=== PATIENT | male | born 1980 | race American Indian/Alaskan Native ===

== ENCOUNTER 2019-11-21 03:39 | Emergency (ER) | payer SELFPAY ==
--- NOTE | 2019-11-21 04:01 | Emergency Department Report ---
<CARLOS BUTT - Last Filed: 11/21/19 11:05> History of Present Illness - General Chief Complaint: Overdose Stated Complaint: STOPPED BREATHING Time Seen by Provider: 11/21/19 03:53 - Related Data Previous Rx's Medication Instructions Recorded Last Taken Type cephALEXin [Keflex] 500 mg PO Q12HR #10 cap 11/21/19 Unknown Rx Allergies Allergy/AdvReac Type Severity Reaction Status Date / Time No Known Allergies Allergy Unverified 11/21/19 04:09 ED Past Medical Hx - Medications Home Medications: Home Medications Medication Instructions Recorded Confirmed Last Taken Type cephALEXin [Keflex] 500 mg PO Q12HR #10 cap 11/21/19 Unknown Rx ED Medical Decision Making - Lab Data Result diagrams: 11/21/19 Unknown 11/21/19 Unknown - Medical Decision Making Patient's Narcan drip was discontinued at 8 AM and patient has remained alert without recurrent respiratory or mental status depression. UA reveals a increased RBC count. Patient will be empirically treated for gonorrhea and chlamydia given the fact that he is abusing drugs to the point of being altered and therefore at risk for high risk sexual behavior. He will also be treated for UTI. Gonorrhea chlamydia test pending. UDS positive for cocaine. Patient will be discharged home and provided outpatient resources for substance abuse programs ED Disposition Clinical Impression: Accidental drug overdose, Drug abuse, Cocaine abuse, Urethritis Disposition: DC-01 TO HOME OR SELFCARE Is pt being admited?: No Condition: Stable Instructions: Nonspecific Urethritis in Men (ED), Cocaine Abuse (ED), Polysubstance Abuse (ED) Additional Instructions: Take the medication as prescribed. Follow-up with your doctor or doctor/clinic provided. Return if symptoms worsen as indicated by your discharge instructions. Your gonorrhea and Chlamydia tests have been sent and take 2-3 days to result. You have been treated for gonorrhea and chlamydia in the ER. You may obtain your results by going to medical records with your photo ID or your follow-up physician may request the results be sent to his or her office with your written permission. You will be treated for a urinary tract infection as well. If your tests are positive for gonorrhea or chlamydia your sexual partners will also be treated for STDs Prescriptions: cephALEXin [Keflex] 500 mg PO Q12HR #10 cap Referrals: PRIMARY CARE, [Primary Care Provider] - 3-5 Days CARBUCCIA,MAY, MD [Staff Physician] - 3-5 Days [facility] [Provider Group] - 3-5 Days Forms: STI Treatment and Prevention Time of Disposition: 11:08 <JAMES REYES - Last Filed: 11/24/19 07:52> History of Present Illness - General Source: patient, EMS Mode of arrival: Stretcher Limitations: No Limitations - History of Present Illness Initial Comments: Patient is 39 years old male with no significant past medical history. Patient brought to the emergency room via EMS from home for evaluation of altered mental status. EMS stated that initial call came as a cardiac arrest however when they went to the patient house patient is breathing with strong pulse. Patient given 2 mg of Narcan by EMS and patient immediately started to wake up. Upon arrival to the ER patient is awake, alert and oriented x3 in no acute distress. Patient informed that he was drinking last night and he also took some cocaine. Patient denied any suicidal ideation, homicidal ideation, visual or auditory hallucination. Patient started on Narcan drip. Complaint: accidental overdose -: Last night How Overdose Was Discovered: family/friend present Context: Accidental Overdose: wanted to get high Treatments Prior to Arrival: narcan ED Review of Systems ROS: Stated complaint: STOPPED BREATHING Other details as noted in HPI Comment: All other systems reviewed and negative Constitutional: denies: chills, fever Respiratory: denies: cough, shortness of breath, SOB with exertion, wheezing Cardiovascular: denies: chest pain, palpitations Gastrointestinal: denies: abdominal pain, nausea, vomiting Musculoskeletal: denies: back pain Neurological: denies: headache, weakness, numbness ED Past Medical Hx - Past Medical History Previous Medical History?: No - Surgical History Past Surgical History?: No - Social History Smoking Status: Current Every Day Smoker Substance Use Type: Alcohol, Cocaine ED Physical Exam - General Limitations: No Limitations General appearance: alert, in no apparent distress - Head Head exam: Present: atraumatic, normocephalic, normal inspection - Eye Eye exam: Present: normal appearance - ENT ENT exam: Present: normal exam, normal orophraynx, mucous membranes moist - Neck Neck exam: Present: normal inspection, full ROM. Absent: tenderness, meningismus - Respiratory Respiratory exam: Present: normal lung sounds bilaterally - Cardiovascular Cardiovascular Exam: Present: regular rate, normal rhythm, normal heart sounds - GI/Abdominal GI/Abdominal exam: Present: soft, normal bowel sounds. Absent: distended, tend erness, guarding, rebound, rigid, mass, bruit, pulsatile mass, hernia - Extremities Exam Extremities exam: Present: normal inspection, full ROM, normal capillary refill. Absent: tenderness, pedal edema, calf tenderness - Back Exam Back exam: Present: normal inspection, full ROM. Absent: CVA tenderness (R), CVA tenderness (L) - Neurological Exam Neurological exam: Present: alert, oriented X3, CN II-XII intact - Psychiatric Psychiatric exam: Present: normal mood. Absent: agitated, anxious, flat affect, manic, homicidal ideation, suicidal ideation - Skin Skin exam: Present: warm, intact, normal color ED Course Vital Signs 11/21/19 11/21/19 11/21/19 03:51 03:55 04:01 Temperature 98.4 F Pulse Rate 104 H 106 H Respiratory 18 18 14 Rate Blood Pressure 127/77 131/83 O2 Sat by Pulse 97 97 95 Oximetry 11/21/19 11/21/19 11/21/19 04:30 05:00 05:30 Temperature Pulse Rate 99 H Respiratory 15 19 16 Rate Blood Pressure 132/78 132/78 O2 Sat by Pulse 95 Oximetry 11/21/19 11/21/19 11/21/19 06:00 06:30 07:00 Temperature Pulse Rate Respiratory 16 12 11 L Rate Blood Pressure 132/78 132/78 118/65 O2 Sat by Pulse 98 97 87 Oximetry 11/21/19 11/21/19 11/21/19 07:30 08:00 09:00 Temperature Pulse Rate Respiratory 15 15 12 Rate Blood Pressure 118/65 123/71 114/62 O2 Sat by Pulse 97 98 91 Oximetry 11/21/19 11/21/19 11/21/19 10:00 10:30 11:00 Temperature Pulse Rate Respiratory 14 11 L 18 Rate Blood Pressure 103/40 103/40 O2 Sat by Pulse 96 94 97 Oximetry ED Medical Decision Making - Lab Data Result diagrams: 11/21/19 Unknown 11/21/19 Unknown - Medical Decision Making Patient is 39 years old male with no significant past medical history. Patient brought to the emergency room via EMS from home for evaluation of altered mental status. EMS stated that initial call came as a cardiac arrest however when they went to the patient house patient is breathing with strong pulse. Patient given 2 mg of Narcan by EMS and patient immediately started to wake up. Upon arrival to the ER patient is awake, alert and oriented x3 in no acute distress. Patient informed that he was drinking last night and he also took some cocaine. Patient denied any suicidal ideation, homicidal ideation, visual or auditory hallucination. Patient started on Narcan drip. Patient reevaluated by me multiple times. Patient remain alert, oriented in x3 in no acute distress. I offered the patient a consultation with mental health for drug rehab however patient immediately declined and he said he will do it by his own. Critical care attestation.: If time is entered above; I have spent that time in minutes in the direct care of this critically ill patient, excluding procedure time. ED Disposition Is pt being admited?: No
[2019-11-21 04:22] LABS: Basophils # (Auto) 0.1 K/mm3 (0.0-0.1); Eosinophils % (Auto) 0.2 % (0.0-4.3); Hematocrit 41.5 % (35.5-45.6); Lymphocytes # (Auto) 0.7 K/mm3 (1.2-5.4); Lymphocytes % (Auto) 8.1 % (13.4-35.0); Mean Corpuscular HGB Conc 34 % (32-34); Mean Corpuscular Volume 87 fl (84-94); Monocytes # (Auto) 0.5 K/mm3 (0.0-0.8); Monocytes % (Auto) 5.2 % (0.0-7.3); Platelet Count 255 K/mm3 (140-440); Red Blood Count 4.75 M/mm3 (3.65-5.03); Red Cell Distribution Width 14.3 % (13.2-15.2)
[2019-11-21] MEDS ORDERED: NALOXONE 2 MG/2 ML 2 MG in SODIUM CHLORIDE 0.9% 500 ML 500 ML IV ONE (04:30)
[2019-11-21 04:33] LABS: BUN/Creatinine Ratio 12; Blood Urea Nitrogen 14 mg/dL (9-20); Calcium 8.8 mg/dL (8.4-10.2); Hemolysis Index 4
[2019-11-21] MEDS ORDERED: MAGNESIUM SULFATE 2 GM/50 ML BAG IV ONE (06:01)
[2019-11-21] MEDS ORDERED: SODIUM CHLORIDE 0.9% 1000 ML 1,000 ML IV ONE (08:26)
[2019-11-21 10:05] VITALS: BP 103/40
[2019-11-21 10:46] LABS: Bilirubin,Urine NEG (Negative); Blood,Urine NEG (Negative); Color,Urine Yellow (Yellow); Mucus,Urine FEW /HPF; Urobilinogen,Urine < 2.0 mg/dL (<2.0)
[2019-11-21 10:55] LABS: Amphetamine Screen,Urine PRESUMPTIVE NEGATIVE; Benzodiazepines Screen,Urine PRESUMPTIVE NEGATIVE; Cannabinoid Screen,Urine PRESUMPTIVE NEGATIVE; Methadone Screen,Urine PRESUMPTIVE NEGATIVE
[2019-11-21] MEDS ORDERED: LIDOCAINE-MPF (1%) 10 MG/1 ML VIAL 5 ML INFILTRATI ONE (11:04)
[2019-11-21] MEDS ORDERED: AZITHROMYCIN 250 MG TAB PO ONE (11:04)
[2019-11-21 11:17] LABS: Cocaine Screen,Urine PRESUMPTIVE POSITIVE; Opiate Screen,Urine PRESUMPTIVE POSITIVE
== END 2019-11-21 11:26 | disposition home or self-care (01) ==
LOC: ED 03:39
DX: T50.7X1A Poisoning by analeptics and opioid receptor antagonists, accidental (unintentional), initial encounter (principal); N34.2 Other urethritis; F14.10 Cocaine abuse, uncomplicated; Y92.89 Other specified places as the place of occurrence of the external cause
CPT/HCPCS: 36415; 80048; 80307; 81001; 85025; 87086; 87591; 96365; 96366; 96372; 99284; J0696; J2310; J3475; J7030; J7040; 80320; G0480

== ENCOUNTER 2019-11-24 13:30 | Emergency (ER) | payer SELFPAY ==
[2019-11-24 14:32] VITALS: BP 153/98
--- NOTE | 2019-11-24 14:40 | Emergency Department Report ---
Chief Complaint: Nausea/Vomiting/Diarrhea Stated Complaint: DIZZY Time Seen by Provider: 11/24/19 14:34 - HPI History of Present Illness: 39 yo AA M pt presents with complaints of nausea x this morning. Pt states he was sent here by his job to be evaluated. He denies any abdominal pain, fever, vomiting, diarrhea, constipation, melena, hematochezia, chest pain, SOB, congestion, or headache. Pt states the nausea has resolved and he is currently feeling well. - Exam Vital Signs: Vital Signs 11/24/19 14:31 Temperature 98.9 F Pulse Rate 72 Respiratory 18 Rate Blood Pressure 153/98 [Right] O2 Sat by Pulse 100 Oximetry MSE screening note: Focused history and physical exam performed. Due to findings the following was ordered: ED Medical Decision Making - Medical Decision Making Pt here with complaints of nausea. He denies any further nausea or other symptoms. Pt's vitals are normal and he is well appearing. Pt instructed try OTC pepto bismol as needed for nausea. Pt also instructed to return to the ED if he develops any abdominal pain, vomiting, diarrhea, SOB, chest pain, hemoptysis, hematochezia/melena, or any other new/worsening/concerning symptoms. Pt to follow up out patient with his PCP. He is stable for d/c home ED Disposition for MSE Clinical Impression: Nausea Disposition: MED SCREENING EXAM-LEFT Is pt being admited?: No Condition: Stable Instructions: Acute Nausea and Vomiting (ED) Additional Instructions: Please try taking over the counter Peptobismol as needed for nausea. If you develop any new or worsening symptoms, return to the emergency department Referrals: PRIMARY CARE, [Referring] - 7-10 days ED Physical Exam - General Limitations: No Limitations General appearance: alert, in no apparent distress - Head Head exam: Present: atraumatic, normocephalic - Neck Neck exam: Present: normal inspection, full ROM. Absent: tenderness - Respiratory Respiratory exam: Present: normal lung sounds bilaterally. Absent: respiratory distress - Cardiovascular Cardiovascular Exam: Present: regular rate, normal rhythm. Absent: systolic murmur, diastolic murmur, rubs, gallop - GI/Abdominal GI/Abdominal exam: Present: soft, normal bowel sounds. Absent: distended, tenderness, guarding, rebound, rigid - Extremities Exam Extremities exam: Present: normal inspection - Back Exam Back exam: Present: normal inspection - Neurological Exam Neurological exam: Present: alert, oriented X3, normal gait - Psychiatric Psychiatric exam: Present: normal affect, normal mood - Skin Skin exam: Present: warm, dry, intact, normal color. Absent: rash, cyanosis, diaphoretic, erythema
== END 2019-11-24 14:40 | disposition left against medical advice (07) ==
LOC: ED 13:30
DX: R42 Dizziness and giddiness (principal); Z53.21 Procedure and treatment not carried out due to patient leaving prior to being seen by health care provider

== ENCOUNTER 2020-07-31 20:55 | Emergency (ER) | payer SELFPAY ==
[2020-07-31] MEDS ORDERED: FAMOTIDINE 20 MG TAB PO ONE (21:45)
[2020-07-31] MEDS ORDERED: ONDANSETRON 4 MG ODT TAB PO ONE (21:45)
--- NOTE | 2020-07-31 21:49 | Event Note ---
ED Screening Note Date of service: 07/31/20 Time: 21:46 ED Screening Note: 40 yr old male presents to ED c/o not feeling well. He states he and his room mate "got into it" this morning he has since been outside all day. He states he started to feel bad this morning. He reports nausea, epigastric pain, generalized weakness, decrease PO intake of solids and liquids. He states he did have 1 beer today. He denies illicit drug use. PMHX: HTN, tobacco use This initial assessment/diagnostic orders/clinical plan/treatment(s) is/are subject to change based on patients health status, clinical progression and re- assessment by fellow clinical providers in the ED. Further treatment and workup at subsequent clinical providers discretion. Patient/guardian urged not to elope from the ED as their condition may be serious if not clinically assessed and managed. Initial orders include: CBC;CMP;trop;EKG;cxr; lipase
[2020-07-31 22:24] LABS: Basophils # (Auto) 0.1 K/mm3 (0.0-0.1); Basophils % (Auto) 0.8 % (0.0-1.8); Hematocrit 47.2 % (35.5-45.6); Hemoglobin 15.6 gm/dl (11.8-15.2); Lymphocytes # (Auto) 1.3 K/mm3 (1.2-5.4); Lymphocytes % (Auto) 7.6 % (13.4-35.0); Mean Corpuscular HGB Conc 33 % (32-34); Mean Corpuscular Volume 94 fl (84-94); Monocytes # (Auto) 0.9 K/mm3 (0.0-0.8); Monocytes % (Auto) 5.1 % (0.0-7.3); Platelet Count 344 K/mm3 (140-440); Red Blood Count 5.02 M/mm3 (3.65-5.03); Red Cell Distribution Width 15.5 % (13.2-15.2)
[2020-07-31 22:27] LABS: Alanine Aminotransferase 19 units/L (7-56); Albumin 5.1 g/dL (3.9-5); BUN/Creatinine Ratio 16; Blood Urea Nitrogen 19 mg/dL (9-20); Calcium 10.3 mg/dL (8.4-10.2); Hemolysis Index 9
--- NOTE | 2020-07-31 22:39 | Emergency Department Report ---
ED General Adult HPI - General Chief complaint: Pain General Stated complaint: GENERAL ILLNESS PUI?: No Time Seen by Provider: 07/31/20 22:30 Source: patient, EMS ( EMS documentation not available at time of chart dictati on ), RN notes reviewed Mode of arrival: Stretcher Limitations: No Limitations - History of Present Illness Initial comments: The patient was evaluated in the emergency department for symptoms described in the history of present illness. He/she was evaluated in the context of the global COVID-19 pandemic, which necessitated consideration that the patient might be at risk for infection with the virus that causes COVID-19. Institutional protocols and algorithms that pertain to the evaluation of patients at risk for COVID-19 are in a state of rapid change based on information released by regulatory bodies including the CDC and federal and state organizations. These policies and algorithms were followed during the patient's care in the emergency department. Please note that these policies, procedures and recommendations changed on a rapid basis. This patient is a 40-year-old gentleman. He is not known to myself previously. He does not have a local primary care doctor. He tells me he has no chronic medical conditions. The patient states that he and his roommate/girlfriend, broke up today. He reports that he does not currently have a place to stay. He reports that he has been walking around in the cold rain for approximately 14 to 15 hours. He presented to the ER with a complaint of weakness, malaise, nausea, lightheadedness, chest tightness. No headache or neck pain, no fever, no loss of taste or smell, no vomiting, no diarrhea, no hematemesis of bright red blood per rectum, no homicidality, no suicidality. The patient reports he does not have a place to go. The patient reports that he does have family, sister in this state, but indicates "were not really getting along." The patient has a cell phone with him, but reports that the battery . The patient feels like he could find a place to go if he is able to make phone calls. Patient also specifically denies abdominal pain to myself. He does endorse some mild generalized muscle aches. -: hour(s) Location: chest, left, right, upper extremity, lower extremity Quality: other (Pressure) Consistency: constant Improves with: none Worsens with: none - Related Data Previous Rx's Medication Instructions Recorded Last Taken Type cephALEXin [Keflex] 500 mg PO Q12HR #10 cap 11/21/19 Unknown Rx Allergies Allergy/AdvReac Type Severity Reaction Status Date / Time No Known Allergies Allergy Unverified 11/21/19 04:09 ED Review of Systems ROS: Stated complaint: GENERAL ILLNESS Other details as noted in HPI Constitutional: malaise, weakness, other (Denies loss of taste and smell). denies: fever Eyes: denies: eye discharge Respiratory: denies: cough Cardiovascular: other (Chest tightness and lightheadedness) Gastrointestinal: nausea. denies: abdominal pain, hematemesis, melena, hematochezia Neurological: weakness. denies: headache Psychiatric: denies: homicidal thoughts, suicidal thoughts ED Past Medical Hx - Past Medical History Previous Medical History?: Yes Hx Hypertension: Yes Hx Psychiatric Treatment: Yes (Depression) - Surgical History Past Surgical History?: No - Social History Smoking Status: Current Every Day Smoker Substance Use Type: None - Medications Home Medications: Home Medications Medication Instructions Recorded Confirmed Last Taken Type cephALEXin [Keflex] 500 mg PO Q12HR #10 cap 11/21/19 Unknown Rx ED Physical Exam - General Limitations: No Limitations General appearance: alert, anxious - Head Head exam: Present: atraumatic, normocephalic - Eye Eye exam: Present: normal appearance, EOMI - ENT ENT exam: Present: normal exam, normal orophraynx, mucous membranes moist, normal external ear exam - Neck Neck exam: Present: normal inspection, full ROM. Absent: tenderness, meningismus - Respiratory Respiratory exam: Present: normal lung sounds bilaterally. Absent: respiratory distress, wheezes, rales, rhonchi, stridor, decreased breath sounds - Cardiovascular Cardiovascular Exam: Present: regular rate, normal rhythm, normal heart sounds. Absent: bradycardia, tachycardia, irregular rhythm, systolic murmur, diastolic murmur, rubs, gallop - GI/Abdominal GI/Abdominal exam: Present: soft. Absent: distended, tenderness, guarding, rebound, rigid, pulsatile mass - Rectal Rectal exam: Present: deferred - Extremities Exam Extremities exam: Present: normal inspection, full ROM, other (2+ pulses noted in the bilateral upper and lower extremities. There is no palpable cord. negative Homans sign. Muscular compartments are soft. The pelvis is stable.). Absent: pedal edema, calf tenderness - Back Exam Back exam: Present: normal inspection, full ROM. Absent: tenderness, CVA tenderness (R), CVA tenderness (L), paraspinal tenderness, vertebral tenderness - Neurological Exam Neurological exam: Present: alert, oriented X3, normal gait, other (No facial droop. Tongue midline. Extraocular movements intact bilaterally. Facial sensation intact to light touch in V1, V2, V3 distribution bilaterally. 5 and a 5 strength in 4 extremities. Sensation intact to light touch in 4 extremities.). Absent: motor sensory deficit - Psychiatric Psychiatric exam: Present: anxious. Absent: homicidal ideation, suicidal ideation - Skin Skin exam: Present: warm, dry, intact, normal color. Absent: rash ED Course Vital Signs 07/31/20 08/01/20 21:45 00:07 Temperature 98.3 F Pulse Rate 90 88 Respiratory 18 18 Rate Blood Pressure 156/114 Blood Pressure 168/104 [Right] O2 Sat by Pulse 96 99 Oximetry - Reevaluation(s) Reevaluation #1: 08/01/20 00:08 Patient has completed fluids, and does not appear to be in any acute distress. He can follow-up with an outpatient primary care doctor for chronically elevated blood pressure, and elevated CK. ED Medical Decision Making - Lab Data Result diagrams: 07/31/20 21:48 07/31/20 21:48 Vital Signs 07/31/20 21:45 Temperature 98.3 F Pulse Rate 90 Respiratory 18 Rate Blood Pressure 156/114 O2 Sat by Pulse 96 Oximetry Lab Results 07/31/20 07/31/20 Range/Units 21:48 21:48 WBC 16.9 H (4.5-11.0) K/mm3 RBC 5.02 (3.65-5.03) M/mm3 Hgb 15.6 H (11.8-15.2) gm/dl Hct 47.2 H (35.5-45.6) % MCV 94 (84-94) fl MCH 31 (28-32) pg MCHC 33 (32-34) % RDW 15.5 H (13.2-15.2) % Plt Count 344 (140-440) K/mm3 Lymph % (Auto) 7.6 L (13.4-35.0) % [place]ador % (Auto) 5.1 (0.0-7.3) % Eos % (Auto) 0.0 (0.0-4.3) % Baso % (Auto) 0.8 (0.0-1.8) % Lymph # (Auto) 1.3 (1.2-5.4) K/mm3 [place] # (Auto) 0.9 H (0.0-0.8) K/mm3 Eos # (Auto) 0.0 (0.0-0.4) K/mm3 Baso # (Auto) 0.1 (0.0-0.1) K/mm3 Seg Neutrophils % 86.5 H (40.0-70.0) % Seg Neutrophils # 14.6 H (1.8-7.7) K/mm3 Sodium 142 (137-145) mmol/L Potassium 4.4 (3.6-5.0) mmol/L Chloride 100.4 (98-107) mmol/L Carbon Dioxide 26 (22-30) mmol/L Anion Gap 20 mmol/L BUN 19 (9-20) mg/dL Creatinine 1.2 (0.8-1.3) mg/dL Estimated GFR > 60 ml/min BUN/Creatinine Ratio 16 % Glucose 104 H (75-100) mg/dL Calcium 10.3 H (8.4-10.2) mg/dL Total Bilirubin 0.90 (0.1-1.2) mg/dL AST 85 H (5-40) units/L ALT 19 (7-56) units/L Alkaline Phosphatase 69 (35-129) units/L Total Creatine Kinase 4048 H (55-170) units/L Troponin T < 0.010 (0.00-0.029) ng/mL Total Protein 7.7 (6.3-8.2) g/dL Albumin 5.1 H (3.9-5) g/dL Albumin/Globulin Ratio 2.0 % Lipase 15 (13-60) units/L - EKG Data -: EKG Interpreted by Fl EKG shows normal: sinus rhythm Rate: tachycardia - EKG Data When compared to previous EKG there are: previous EKG unavailable 07/31/20 23:03 Sinus rhythm, tachycardia, 104 bpm. Normal axis, QTC 455 ms, high left ventricular voltage, early repolarization, not a STEMI. - Radiology Data Radiology results: pending, report reviewed, image reviewed X-ray of the chest is negative for acute disease. - Medical Decision Making Differential diagnosis, including but not limited to: General medical examinat ion, anxiety, case management patient, elevated CK, homelessness Assessment and plan: 40-year-old gentleman, who is clinically sober with a GCS of 15, calm and cooperative, not homicidal, not suicidal, demonstrates lucid and rational thought process, does not meet criteria for 1013 hold or involuntary hold, with multiple nonspecific complaints. Tachycardia resolved. Elevated blood pressure not acutely decompensated, please reference the [employer] clinical policy on asymptomatic hypertension. Outpatient follow-up for this. Troponin was sent prior to my personal evaluation. Patient at low risk for major adverse cardiac event. Not currently tachycardic, tachypneic or hypoxic, reportedly walked around for 14 hours without difficulty, this is very unlikely to be a pulmonary embolism. Equal pulses in the upper and lower extremities, no pulsatile abdominal mass, x- ray of the chest unremarkable, aortic disease unlikely Symptoms present for greater than 8 hours, troponin negative x1, EKG not consistent with STEMI, as per the [employer] clinical policy, acute myocardial infarction may be excluded with 1 set of troponin/cardiac enzymes. Elevated CK likely secondary to prolonged exercise. He has soft compartments, and normal renal function. IV fluids, outpatient oral hydration, outpatient recheck for this. CBC reviewed and appreciated, leukocytosis likely a stress reaction, patient demonstrates evidence of hemoconcentration. Do not suspect invasive bacterial illness at this time. Patient reports he presents after hours, we do not have case management or perinatal social worker available at this time. He will be given a list of outpatient long term and resources. In addition, the patient states he feels like he can use one of our phones to make phone calls to see about obtaining outpatient housing. Critical care attestation.: If time is entered above; I have spent that time in minutes in the direct care of this critically ill patient, excluding procedure time. ED Disposition Clinical Impression: General medical exam, Elevated blood pressure reading, Elevated CK Disposition: DC-01 TO HOME OR SELFCARE Is pt being admited?: No Does the pt Need Aspirin: No Condition: Good Additional Instructions: Recommend that patient drinks 6 cups of water per day indefinitely. Recommend that patient follow-up with a primary care doctor within the next week for repeat laboratory testing/repeat testing for elevated CK level. Patient found to have elevated blood pressure today, please follow-up with your primary care doctor for this within the next month. First-line treatment for elevated blood pressure and hypertension are diet lifestyle modifications, including exercise, uninterrupted sleep, appropriate diet consisting of fiber, vegetables, and lean protein. Please return to the emergency room right away with new pain, worsened pain, migration of pain, rectal vomiting, change in mental status, confusion, inabil ity to tolerate liquid feeds, homicidality, suicidality, new, worsening or different symptoms not present on the initial emergency room evaluation. Referrals: MAY LUCAS MD [Staff Physician] - 3-5 Days Heart Score - HEART Score History: Slightly suspicious EKG: Non-specific Age: < 45 Risk factors: 1-2 risk factors Troponin: < normal limit HEART Score: 2 - Critical Actions Critical Actions: 0-3 pts:0.9-1.7%risk of adverse cardiac event.Candidate for discharge
--- NOTE | 2020-07-31 22:39 | XRay Report ---
CHEST 2 VIEWS INDICATION / CLINICAL INFORMATION: Epigastric pain. COMPARISON: None available. FINDINGS: SUPPORT DEVICES: None. HEART / MEDIASTINUM: No significant abnormality. LUNGS / PLEURA: No significant pulmonary or pleural abnormality. No pneumothorax. ADDITIONAL FINDINGS: No free air beneath the diaphragm. IMPRESSION: 1. No acute findings. Signer Name: Basia Garcia MD Signed: 07/31/2020 10:35 PM Workstation Name: [id number]
[2020-07-31] MEDS ORDERED: LACTATED RINGERS 2,000 ML IV ONE (22:55)
[2020-08-01 00:07] VITALS: BP 168/104
== END 2020-08-01 00:42 | disposition home or self-care (01) ==
LOC: ED 20:55
DX: R74.8 Abnormal levels of other serum enzymes (principal); R03.0 Elevated blood-pressure reading, without diagnosis of hypertension; I10 Essential (primary) hypertension; F32.9 Major depressive disorder, single episode, unspecified; F17.200 Nicotine dependence, unspecified, uncomplicated; Z79.899 Other long term (current) drug therapy; Z00.01 Encounter for general adult medical examination with abnormal findings
CPT/HCPCS: 36415; 71046; 80053; 82550; 83690; 83735; 84484; 85025; 93005; 96360; 99284; J7120; 80320; G0480